=== PATIENT | female | born 1990 | race American Indian/Alaskan Native ===

== ENCOUNTER 2020-01-07 14:21 | Emergency (ER) | payer SELFPAY ==
[2020-01-07 14:43] VITALS: BP 127/83
--- NOTE | 2020-01-07 15:27 | XRay Report ---
CHEST 2 VIEWS, 01/07/2020 3:03 PM INDICATION: Chest pain COMPARISON: None FINDINGS: Support devices: None Heart: The cardiac silhouette is normal in size. Lungs/pleura: The lungs are well expanded and appear clear of focal airspace disease or significant p leural effusion. Additional findings: No significant acute abnormality. IMPRESSION: 1. No evidence of acute cardiopulmonary process. Signer Name: Lauren Banda MD Signed: 01/07/2020 3:23 PM Workstation Name: [id number]
--- NOTE | 2020-01-07 15:40 | Emergency Department Report ---
Blank Doc - Documentation Documentation: This is a 29-year-old female that was addressed to me by spray blender for symptoms of chest pain and shortness of breath. Labs has been placed. I did enter patient's room and patient was not there. As per RN, patient left AGAINST MEDICAL ADVICE. Patient was not seen or examined by me. RN was instructed to call the patient back as symptoms could be severe if not treated or diagnosed.
== END 2020-01-07 15:39 | disposition left against medical advice (07) ==
LOC: ED 14:21
DX: R07.9 Chest pain, unspecified (principal); M54.9 Dorsalgia, unspecified; R51 Headache; Z53.21 Procedure and treatment not carried out due to patient leaving prior to being seen by health care provider
CPT/HCPCS: 71046; 93005; 93010